=== PATIENT | male | born 1970 | race Caucasian/White ===

== ENCOUNTER → 2021-08-26 | Day surgery (SDC) | payer OTHER ==
[~2021-08-26] MED LIST: FOLIC ACID PO; FUROSEMIDE20 MG PO; MEN'S ONE DAIL1 EACH PO; PROTONIX 40 MG40 M1 PO; SPIRONOLACTONE50 MG PO; VENTOLIN INHALER INH; VITAMIN B1 PO; VITAMIN C1000 MG PO
[2021-08-26 11:55] LABS: BUN/CREATININE RATIO 31 (0-10)
== END | disposition home or self-care (01) ==
LOC: OR 07:30
PROVIDERS: Internal Medicine Gastroenterology
DX: K70.31 Alcoholic cirrhosis of liver with ascites (principal); K22.10 Ulcer of esophagus without bleeding; K44.9 Diaphragmatic hernia without obstruction or gangrene; K21.00 Gastro-esophageal reflux disease with esophagitis, without bleeding; I85.10 Secondary esophageal varices without bleeding; K76.6 Portal hypertension; K31.89 Other diseases of stomach and duodenum; I10 Essential (primary) hypertension; E66.01 Morbid (severe) obesity due to excess calories; Z68.41 Body mass index [BMI] 40.0-44.9, adult; Z88.0 Allergy status to penicillin; Z79.899 Other long term (current) drug therapy
CPT/HCPCS: 80048; J2250; J2704; J7040